=== PATIENT | male | born 1985 | race Caucasian/White ===

== ENCOUNTER 2019-04-03 11:35 | Emergency (ER) | payer BC, OTHER ==
[2019-04-03] MEDS ORDERED: Sodium Chloride 0.9% 1,000 ML IV SCH (11:45)
[2019-04-03] MEDS ORDERED: Sodium Chloride 0.9% 10 ML Syringe FLUSH PRN (11:45)
[2019-04-03] MEDS ORDERED: Hyoscyamine 0.125 MG Tab.SL SL ONE (12:07)
--- NOTE | 2019-04-03 12:17 | EDM.PDOC ---
ED HPI GENERAL MEDICAL PROBLEM - General Chief Complaint: Abdominal Pain Stated Complaint: THINKS HE HAS APPENDICITIS Time Seen by Provider: 04/03/19 11:45 Source of Information: Reports: Patient History Limitations: Reports: No Limitations - History of Present Illness INITIAL COMMENTS - FREE TEXT/NARRATIVE: 33 y/o male presents to ER with cc RUQ pain that started this morning around 0500. He states he was sleeping and when he took a deep breath he felt a stabbing sensation in his RUQ. He reports having similar pain last week, but it went away. He denies nausea, vomiting, diarrhea, constipation, fever or chills. He reports nothing makes it better. It is worse when he takes a deep breath. He does not have a PCP. He reports he has been in otherwise good health. Onset: Today Onset Date: 04/03/19 Onset Time: 05:00 Duration: Intermittent Location: Reports: Abdomen Quality: Reports: Stabbing Severity: Mild Improves with: Reports: None Worsens with: Reports: Other (taking a deep breath) Associated Symptoms: Denies: Chest Pain, Cough, Fever/Chills, Headaches, Loss of Appetite, Nausea/Vomiting, Shortness of Breath Right Lower Abdomen Pain Score (Numeric/FACES): 6 - Related Data Allergies Allergy/AdvReac Type Severity Reaction Status Date / Time Penicillins Allergy Rash Verified 04/03/19 11:48 Home Meds: Home Meds Albuterol Sulfate 0.63 mg IH Q4HR PRN 10 Days #30 ml 04/03/19 [Rx] Azithromycin [Zithromax] 250 mg PO DAILY 5 Days #6 tab 04/03/19 [Rx] Codeine/Promethazine [Phenergan with Codeine] 5 ml PO Q6HR PRN 7 Days #120 ml [Rx] Ranitidine HCl [Zantac 75] 75 mg PO DAILY 04/03/19 [History] Past Medical History - Past Surgical History Musculoskeletal Surgical History: Reports: ORIF Social & Family History - Tobacco Use Smoking Status *Q: Never Smoker - Caffeine Use Caffeine Use: Reports: Energy Drinks - Recreational Drug Use Recreational Drug Use: No ED ROS GENERAL - Review of Systems Review Of Systems: See Below Constitutional: Denies: Fever, Chills HEENT: Reports: No Symptoms. Denies: Vision Change Cardiovascular: Denies: Chest Pain Endocrine: Denies: Fatigue GI/Abdominal: Reports: Abdominal Pain (RUQ). Denies: Anorexia, Constipation, Diarrhea, Difficulty Swallowing, Vomiting Musculoskeletal: Reports: No Symptoms Skin: Reports: No Symptoms Neurological: Reports: No Symptoms Psychiatric: Reports: No Symptoms Hematologic/Lymphatic: Reports: No Symptoms Immunologic: Reports: No Symptoms ED EXAM, GI/ABD - Physical Exam Exam: See Below Exam Limited By: No Limitations General Appearance: Alert, WD/WN, No Apparent Distress Neck: Normal Inspection, Supple, Non-Tender Respiratory/Chest: No Respiratory Distress, Lungs Clear, Normal Breath Sounds, No Accessory Muscle Use, Chest Non-Tender Cardiovascular: Normal Peripheral Pulses, Regular Rate, Rhythm, No Edema, No Gallop, No JVD, No Murmur, No Rub GI/Abdominal Exam: Normal Bowel Sounds, Soft, No Organomegaly, No Distention, No Abnormal Bruit, No Mass, Pelvis Stable, Tender (RUQ). No: Guarding, Rigid, Rebound Back Exam: Normal Inspection, Full Range of Motion Extremities: Normal Inspection, Normal Range of Motion, Non-Tender, No Pedal Edema, Normal Capillary Refill Neurological: Alert, Oriented, CN II-XII Intact, Normal Cognition, Normal Gait Psychiatric: Normal Affect, Normal Mood Skin Exam: Warm, Dry, Intact, Normal Color, No Rash Lymphatic: No Adenopathy Course - Vital Signs Last Recorded V/S: Last Vital Signs Temp 98.6 F 04/03/19 11:46 Pulse 95 04/03/19 11:46 Resp 16 04/03/19 11:46 BP 136/96 H 04/03/19 11:46 Pulse Ox 95 04/03/19 11:46 - Orders/Labs/Meds Orders: Active Orders 24 hr Category Date Time Status Abdomen Ltd [US] Stat Exams 04/03/19 12:06 Taken CXR [Chest 1V Frontal] [CR] Stat Exams 04/03/19 12:44 Taken Labs: Laboratory Tests 04/03/19 04/03/19 04/03/19 Range/Units 12:18 12:18 12:18 WBC 8.55 (4.23-9.07) K/mm3 RBC 5.12 (4.63-6.08) M/mm3 Hgb 14.3 (13.7-17.5) gm/L Hct 42.7 (40.1-51.0) % MCV 83.4 (79.0-92.2) fl MCH 27.9 (25.7-32.2) pg MCHC 33.5 (32.2-35.5) g/dl RDW Std Deviation 40.7 (35.1-43.9) fL Plt Count 519 H (163-337) K/mm3 MPV 8.4 L (9.4-12.3) fl Neut % (Auto) 73.6 H (34.0-67.9) % Lymph % (Auto) 14.4 L (21.8-53.1) % Bandera % (Auto) 10.5 (5.3-12.2) % Eos % (Auto) 0.9 (0.8-7.0) Baso % (Auto) 0.2 (0.1-1.2) % Neut # (Auto) 6.29 H (1.78-5.38) K/mm3 Lymph # (Auto) 1.23 L (1.32-3.57) K/mm3 Bandera # (Auto) 0.90 H (0.30-0.82) K/mm3 Eos # (Auto) 0.08 (0.04-0.54) K/mm3 Baso # (Auto) 0.02 (0.01-0.08) K/mm3 Sodium 137 (136-145) mEq/L Potassium 3.5 (3.5-5.1) mEq/L Chloride 101 (98-107) mEq/L Carbon Dioxide 26 (21-32) mEq/L Anion Gap 13.5 (5-15) BUN 11 (7-18) mg/dL Creatinine 1.0 (0.7-1.3) mg/dL Est Cr Clr Drug Dosing 120.96 mL/min Estimated GFR (MDRD) > 60 (>60) mL/min BUN/Creatinine Ratio 11.0 L (14-18) Glucose 122 H (74-106) mg/dL Calcium 9.4 (8.5-10.1) mg/dL Total Bilirubin 0.5 (0.2-1.0) mg/dL AST 13 L (15-37) U/L ALT 34 (16-63) U/L Alkaline Phosphatase 61 (46-116) U/L Total Protein 7.5 (6.4-8.2) g/dl Albumin 3.5 (3.4-5.0) g/dl Globulin 4.0 gm/dL Albumin/Globulin Ratio 0.9 L (1-2) Lipase 179 (73-393) U/L Meds: Medications Discontinued Medications Generic Name Dose Route Start Last Admin Trade Name Freq PRN Reason Stop Dose Admin Hyoscyamine 0.125 mg 04/03/19 12:07 04/03/19 12:14 Hyomax-Sl SL 04/03/19 12:08 0.125 mg ONETIME ONE Administration Sodium Chloride 1,000 mls @ 125 mls/hr 04/03/19 11:45 Normal Saline IV ASDIRECTED ALICE Ketorolac Tromethamine 60 mg 04/03/19 13:15 Toradol IM 04/03/19 13:16 ONETIME ONE Sodium Chloride 10 ml 04/03/19 11:45 Saline Flush FLUSH ASDIRECTED PRN Keep Vein Open - Re-Assessments/Exams Free Text/Narrative Re-Assessment/Exam: 04/03/19 12:20 Labs ordered and gallbladder ultrasound. 04/03/19 13:15 chest x-ray reveals RLL infiltrates. abdominal ultrasound was negative. WBC 8.58 RBC 5.14 H & H 14.3/42.7 PLT 519 Na + 137 K+ 3.5 chl 101 co2 26 bun 11 creatine 1.0 ast 13 alt 34 lipase 179 I will discharge home with Azithromycin and Phenergan with codeine for cough. Instructed him not to take Phenergan with Codeine and drink, drive or operate machinery. Instructed to follow up with his PCP. He verbalized understanding and is comfortable with plan for discharge. He is stable at time of discharge. Instructed to return to ER for any new or acute worsening symptoms. Departure - Departure Time of Disposition: 13:28 Disposition: Home, Self-Care 01 Clinical Impression: Cough Pneumonia Qualifiers: Pneumonia type: due to unspecified organism Laterality: right Lung location: lower lobe of lung Qualified Code(s): J18.1 - Lobar pneumonia, unspecified organism - Discharge Information Prescriptions: Albuterol Sulfate 0.63 mg IH Q4HR PRN 10 Days #30 ml PRN Reason: cough Codeine/Promethazine [Phenergan with Codeine] 5 ml PO Q6HR PRN 7 Days #120 ml PRN Reason: Cough Azithromycin [Zithromax] 250 mg PO DAILY 5 Days #6 tab Instructions: Cool Mist Vaporizer, Community-Acquired Pneumonia, Adult, Easy-to -Read, Cough, Adult, [id number] Referrals: PCP,None [Primary Care Provider] - Forms: ED Department Discharge Additional Instructions: you have been diagnosis with pneumonia. Use the albuterol nebulizer every 4 hours as needed for cough or congestion. Take the Phenergan with Codeine for cough as directed. Do not drink, drive or operate machinery while taking this. Follow up with your PCP. Return to the ER for any new or acute worsening symptoms. - My Orders Last 24 Hours: My Active Orders 04/03/19 12:06 Abdomen Ltd [US] Stat 04/03/19 12:44 CXR [Chest 1V Frontal] [CR] Stat - Assessment/Plan Last 24 Hours: My Active Orders 04/03/19 12:06 Abdomen Ltd [US] Stat 04/03/19 12:44 CXR [Chest 1V Frontal] [CR] Stat
[2019-04-03] MEDS ORDERED: Ketorolac 30 MG/ML SDV IM ONE (13:15)
--- NOTE | 2019-04-03 14:22 | CR ---
Chest: Portable view of the chest was obtained. Comparison: No prior chest x-ray. Increased density of the right lung base is noted. Lungs otherwise are clear. Heart size and mediastinum are normal. Bony structures are grossly intact. Impression: 1. Increased density within the right lung base most likely representing pneumonia. Diagnostic code #3
--- NOTE | 2019-04-03 14:47 | US ---
Limited abdominal ultrasound: Multiple real-time images of the upper right abdomen were obtained. Comparison: No previous abdominal imaging. Aorta shows no aneurysm. Liver is equivocally echogenic. No focal parenchymal abnormality is seen. Gallbladder contains no shadowing gallstones. No gallbladder wall thickening or biliary duct dilatation is seen. Right kidney shows no hydronephrosis or mass. Right kidney has a length of 12.1 cm. Pancreas is obscured from bowel gas. Inferior vena cava is patent. Normal hepatopedal flow is noted. Impression: 1. Obscured pancreas. 2. Equivocal fatty infiltration within the liver. 3. Right upper quadrant abdominal ultrasound is otherwise unremarkable. Diagnostic code #2 I agree with preliminary report from [facility], finalized on 04/03/19, 2:27 PM Central Time
== END 2019-04-03 13:50 | disposition home or self-care (01) ==
LOC: JD.ED 11:35
DX: J18.1 Lobar pneumonia, unspecified organism (principal); Z88.0 Allergy status to penicillin
CPT/HCPCS: 36415; 71045; 76705; 80053; 83690; 85025; 96372; 99284; A9270; J1885

== ENCOUNTER 2024-11-13 04:07 | Emergency (ER) | payer SELFPAY ==
[2024-11-13] MEDS: LORazepam 2 MG/ML SDV IVPUSH ONE (04:39)
[2024-11-13] MEDS: Sodium Chloride 0.9% 10 ML Syringe FLUSH PRN (04:39)
[2024-11-13] MEDS: Sodium Chloride 0.9% 1,000 ML IV ONE (04:39)
[2024-11-13 04:40] LABS: BASOPHILS ABSOLUTE AUTO 0.1 K/mm3 (0.0-0.2); BASOPHILS PERCENT AUTO 0.9 % (0.0-1.0); EOSINOPHILS ABSOLUTE AUTO 0.1 K/mm3 (0.0-0.4); EOSINOPHILS PERCENT AUTO 1.1 % (0.0-6.0); HEMATOCRIT 43.5 % (42.0-52.0); HEMOGLOBIN 15.5 gm/dl (14.0-18.0); IMMATURE GRAN ABSOLUTE AUTO 0.02 K/mm3 (0.00-0.05); IMMATURE GRAN PERCENT AUTO 0.2 % (0.0-0.4); LYMPHOCYTES ABSOLUTE AUTO 2.5 K/mm3 (1.0-4.8); LYMPHOCYTES PERCENT AUTO 27.4 % (24.0-44.0); MEAN CORPUSCULAR HEMOGLOBIN 31.2 pg (28.0-32.0); MEAN CORPUSCULAR HGB CONC 35.6 g/dl (32.0-36.0); MEAN CORPUSCULAR VOLUME 87.5 fl (83.0-99.0); MONOCYTES ABSOLUTE AUTO 0.5 K/mm3 (0.0-0.8); MONOCYTES PERCENT AUTO 5.4 % (0.0-8.0); PLATELET COUNT,PLT 286 K/mm3 (150-400); RED BLOOD CELL COUNT 4.97 M/mm3 (4.52-5.90)
[2024-11-13 05:12] LABS: A/G RATIO 1.4 (1-2); ALANINE AMINOTRANSFERASE,ALT 56 U/L (16-63); ALBUMIN 4.5 g/dl (3.4-5.0); ALKALINE PHOSPHATASE 76 U/L (46-116); ANION GAP 23.2 (5-15); ASPARTATE AMNIOTRANSFERASE,AST 72 U/L (15-37); BILIRUBIN TOTAL 1.3 mg/dL (0.2-1.0); BLOOD UREA NITROGEN,BUN 9 mg/dL (7-18); CALCIUM 8.6 mg/dL (8.5-10.1); CARBON DIOXIDE,CO2 20 mEq/L (21-32); CHLORIDE,CL 96 mEq/L (98-107); ESTIMATED GFR 99 mL/min (>60); ETHANOL BLOOD MEDICAL 0.25 gm% (0.00); GLUCOSE RANDOM 136 mg/dL (70-99); POTASSIUM,K 3.2 mEq/L (3.5-5.1); PROTEIN TOTAL,TP 7.7 g/dl (6.4-8.2); SODIUM,NA 136 mEq/L (136-145)
[2024-11-13 05:16] LABS: ACETAMINOPHEN 0 ug/mL (10-30)
[2024-11-13 05:29] LABS: TROPONIN I HIGH SENSITIVITY < 4 pg/mL (<=76)
[2024-11-13] MEDS: Potassium Chloride 10 MEQ in Premix Bag 1 BAG IV SCH (07:14)
[2024-11-13] MEDS: Magnesium Sulfate/Water Premix 4 GM in Premix Bag 1 BAG IV ONE (07:14)
[2024-11-13] MEDS: Sodium Chloride 0.9% 1,000 ML IV STA (07:15)
[2024-11-13] MEDS: Magnesium Sulfate/Water Premix 2 GM/50 ML BAG IV ONE (08:13)
[2024-11-13 11:17] LABS: MAGNESIUM 2.5 mg/dL (1.8-2.4); POTASSIUM,K 3.8 mEq/L (3.5-5.1)
[2024-11-13 11:28] LABS: APPEARANCE,URINE CLEAR (Clear); BILIRUBIN,URINE NEGATIVE (Negative); COLOR,URINE YELLOW (Yellow); GLUCOSE,URINE NEGATIVE (Negative); KETONES,URINE 4+ (Negative); LEUKOCYTE ESTERASE,URINE NEGATIVE (Negative); NITRITE,URINE NEGATIVE (Negative); OCCULT BLOOD,URINE NEGATIVE (Negative); PROTEIN,URINE 2+ (Negative); UROBILINOGEN,URINE 0.2 (0.2-1.0)
[2024-11-13 11:38] LABS: BARBITURATE SCREEN,URINE NEGATIVE (CUTOFF=200); BENZODIAZEPINES SCREEN,URINE PRESUMPTIVE POSITIVE (CUTOFF=150); BUPRENORPHINE SCREEN,URINE NEGATIVE (CUTOFF=10); METHADONE SCREEN, URINE NEGATIVE (CUT0FF=200); METHAMPHETAMINES SCREEN, URINE NEGATIVE (CUTOFF=500); OXYCODONE SCREEN,URINE NEGATIVE (CUT0FF=100); THC SCREEN,URINE 20 NG/ML NEGATIVE (CUTOFF=50)
[2024-11-13 11:43] LABS: BACTERIA,URINE MODERATE /hpf (FEW); EPITHELIAL CELLS,URINE 0-5 /hpf (0-5); RBC,URINE 0-5 /hpf (0-5); WBC,URINE 0-5 /hpf (0-5)
[2024-11-13 11:44] LABS: HYALINE CASTS,URINE 0-5 /lpf (0-5); MUCUS,URINE MODERATE /hpf (FEW)
[2024-11-13 11:46] LABS: AMPHETAMINES SCREEN, URINE NEGATIVE (CUTOFF=500)
== END 2024-11-13 12:25 | disposition home or self-care (01) ==
LOC: JD.ED 04:07
DX: R07.9 Chest pain, unspecified (principal); E87.6 Hypokalemia; E83.42 Hypomagnesemia; F14.90 Cocaine use, unspecified, uncomplicated; R94.31 Abnormal electrocardiogram [ECG] [EKG]; Z88.0 Allergy status to penicillin; Z79.51 Long term (current) use of inhaled steroids; Z79.899 Other long term (current) drug therapy
CPT/HCPCS: 36415; 71045; 80053; 80143; 80179; 80306; 80307; 81001; 83735; 84132; 84484; 85025; 93005; 96361; 96365; 96366; 96367; 96375; 99285; J2060; J3475; J3480; J7030